=== PATIENT | female | born 1940 | race Hispanic/Latino ===

== ENCOUNTER 2016-10-17 11:38 | Emergency (ER) | payer MEDICARE ==
[2016-10-17 13:04] VITALS: RESP 18; TEMP 98.3
--- NOTE | 2016-10-17 13:09 | ED PDOC ---
Lower Extremity Pain/Injury Time Seen by Provider: 10/17/16 12:15 Chief Complaint (Nursing): Lower Extremity Problem/Injury Chief Complaint (Provider): Lower Extremity Problem/Injury History Per: Patient History/Exam Limitations: no limitations Onset/Duration Of Symptoms: Days (x28) Additional Complaint(s): Otilia Maradiaga, 76 year old female with a past medical history inclusive of Osteoarthritis, presents to the ED after experiencing a fall and injuring her left lower extremity 4 weeks prior to arrival. The patient reports being evaluated for this injury with no fracture noted. She complains of swelling and pain to her left calf. She denies shortness of breath, or chest pain. The patient states she was referred by her PMD for Duplex Studies. PMD: John Mcfadden MD Past Medical History Reviewed: Historical Data, Nursing Documentation, Vital Signs Vital Signs: Last Vital Signs Temp 98.3 F 10/17/16 13:03 Pulse 86 10/17/16 13:03 Resp 18 10/17/16 13:03 BP 128/64 10/17/16 13:03 Pulse Ox 100 10/17/16 13:03 - Medical History PMH: Denies: Chronic Kidney Disease Other PMH: osteoarthritis - Surgical History Surgical History: Appendectomy - Family History Family History: States: Unknown Family Hx - Social History Current smoker - smoking cessation education provided: No Ex-Smoker (has not smoked in the last 12 months): No Alcohol: None Drugs: Denies - Immunization History Hx Tetanus Toxoid Vaccination: Yes (more than 10 years ago) - Home Medications Home Medications: Ambulatory Orders Medication Instructions Recorded Naproxen [Naprosyn] 500 mg PO Q12H #20 tab 10/17/16 Sulfamethoxazole/Trimethoprim 1 tab PO BID #20 tab 10/17/16 [Bactrim DS 800 mg-160 mg] - Allergies Allergies/Adverse Reactions: Allergies Allergy/AdvReac Type Severity Reaction Status Date / Time Unobtainable Allergy Verified 10/17/16 12:41 Review of Systems Cardiovascular: Negative for: Chest Pain Respiratory: Negative for: Shortness of Breath Musculoskeletal: Positive for: Leg Pain (swelling and pain to left calf ) Physical Exam - Reviewed Nursing Documentation Reviewed: Yes Vital Signs Reviewed: Yes - Physical Exam Appears: Positive for: Well, Non-toxic, No Acute Distress Head Exam: Positive for: ATRAUMATIC, NORMAL INSPECTION, NORMOCEPHALIC Cardiovascular/Chest: Positive for: Regular Rate, Rhythm Respiratory: Positive for: Normal Breath Sounds. Negative for: Respiratory Distress Extremity: Positive for: Tenderness (tenderness and swelling to pretibial area ) , Calf Tenderness (mild ), Swelling (mild calf swelling). Negative for: Other ( no erythema noted) - ECG O2 Sat by Pulse Oximetry: 100 (RA) Pulse Ox Interpretation: Normal Medical Decision Making Medical Decision Making: Impression: Calf pain and swelling Plan: * Cervical Spine Complete [RAD] * LS Spine With OBL > 18 yrs old [RAD] * US Duplex Lower Extrm Vein left * Reevaluation Scribe Attestation: Documented by Brandy Galicia, acting as a scribe for Varun Man MD. Provider Scribe Attestation: All medical record entries made by the Scribe were at my direction and personally dictated by me. I have reviewed the chart and agree that the record accurately reflects my personal performance of the history, physical exam, medical decision making, and the department course for this patient. I have also personally directed, reviewed, and agree with the discharge instructions and disposition. Disposition - Clinical Impression Clinical Impression: Bakers cyst, Degenerative disc disease, UTI (urinary tract infection) - Patient ED Disposition Is Patient to be Admitted: No - Disposition Referrals: John Mcfadden MD [Primary Care Provider] - Disposition: Routine/Home Disposition Time: 15:06 Condition: FAIR Prescriptions: Naproxen [Naprosyn] 500 mg PO Q12H #20 tab Sulfamethoxazole/Trimethoprim [Bactrim DS 800 mg-160 mg] 1 tab PO BID #20 tab Instructions: Perry's Cyst (ED), Degenerative Disc Disease (ED), Urinary Tract Infection in Women (ED) Forms: [employer] ([place])
--- NOTE | 2016-10-17 14:44 | US ---
PROCEDURE: Bilateral lower extremity venous duplex Doppler. HISTORY: pain COMPARISON: None available. TECHNIQUE: Bilateral common femoral, superficial femoral, popliteal and posterior tibial veins were evaluated. Flow was assessed with color Doppler, compressibility, assessment of phasic flow and augmentation response. FINDINGS: COMMON FEMORAL VEIN: Right CFV: Unremarkable. Left CFV: Unremarkable. SUPERFICIAL FEMORAL VEIN: Right SFV: Unremarkable. Left SFV: Unremarkable. POPLITEAL VEIN: Right Popliteal: Unremarkable. Left Popliteal: Unremarkable. POSTERIOR TIBIAL VEIN: Right PTV: Unremarkable. Left PTV: Unremarkable. OTHER FINDINGS: Complex fluid collection right popliteal fossa 1.9 x 1.7 x 4.9 cm IMPRESSION: No evidence of deep venous thrombosis.
[2016-10-17 15:40] VITALS: BP 153/86; PULSE 94; O2SAT 97
--- NOTE | 2016-10-17 16:02 | RAD ---
PROCEDURE: Cervical Spine Radiographs. HISTORY: Pain. COMPARISON: 03/31/2014 FINDINGS: BONES: No acute fractures. Diffuse osteopenia. Stable kyphosis. DISC SPACES: Stable degenerative changes primarily mid. SOFT TISSUES: Normal. No prevertebral soft tissue swelling. OTHER FINDINGS: None. IMPRESSION: No acute findings related to/accounting for the clinical presentation. No significant interval change compared to the prior examination(s).
--- NOTE | 2016-10-17 16:03 | RAD ---
PROCEDURE: Radiographs of the Lumbar Spine. HISTORY: trauma r/o fx COMPARISON: No prior. FINDINGS: BONES: T12 vertebral body fracture. Aged, acuity unknown DISC SPACES: Multilevel disc space disease primarily disc space narrowing mid and lower lumbar region, lumbosacral junction. Grade 1 anterolisthesis L3-4. OTHER FINDINGS: None. IMPRESSION: Osteopenia, diffuse. T12 compression fracture age indeterminate. Additional benign and/or incidental findings described above.
== END 2016-10-17 15:25 | disposition home or self-care (01) ==
LOC: H.ER 11:38
DX: M71.22 Synovial cyst of popliteal space [Baker], left knee (principal); M17.12 Unilateral primary osteoarthritis, left knee; N39.0 Urinary tract infection, site not specified